=== PATIENT | male | born 1980 | race Caucasian/White ===

== ENCOUNTER 2017-10-11 05:22 | Emergency (ER) | payer OTHER ==
[2017-10-11 05:42] VITALS: TEMP 97.9; BMI 42.5
[2017-10-11] MEDS ORDERED: morphine CARPU-JECT 4 MG/1 ML DISP.SYRIN IVPUSH ONE (05:47)
--- NOTE | 2017-10-11 06:02 | PDOC ---
History of Present Illness - General Chief Complaint: Pain Stated Complaint: ABDOMINAL PAIN Time Seen by Provider: 10/11/17 05:36 - History of Present Illness Initial Comments: 10/11/17 05:57 The patient is a 37 year old male with no significant past medical history brought in by EMS for periumbilical pain that woke him from sleep early this morning. The patient describes his pain as a "stretching" sensation that is nonradiating and nonmigrating. Pain is not noted to be associated with eating. He does complain of some loose stool last night. No vomiting or constipation. No groin or testicular pain. No fever or chills. No chest pain or shortness of breath. Pt notes that he was exercising last night (doing crunches) but did not feel any pain at that time. Pt denies prior surgeries. No h/o hernias. Has not noticed any new bulges in his abdomen. Past History - Past Medical History Allergies/Adverse Reactions: Allergies Allergy/AdvReac Type Severity Reaction Status Date / Time No Known Allergies Allergy Verified 10/11/17 05:41 Home Medications: Ambulatory Orders NK [No Known Home Medication] 10/11/17 - Suicide/Smoking/Psychosocial Hx Smoking History: Never smoked Have you smoked in the past 12 months: No Information on smoking cessation initiated: No Hx Alcohol Use: No Drug/Substance Use Hx: No Review of Systems - Review of Systems Comments:: 10/11/17 06:00 "GENERAL/CONSTITUTIONAL: No fever or chills. No weakness. HEAD, EYES, EARS, NOSE AND THROAT: No change in vision. No ear pain or discharge. No sore throat. CARDIOVASCULAR: No chest pain or shortness of breath. RESPIRATORY: No cough, wheezing, or hemoptysis. GASTROINTESTINAL: +Abdominal pain. +Loose stool (resolved). No vomiting, or constipation. GENITOURINARY: No dysuria, frequency, or change in urination. No groin or testicular pain. MUSCULOSKELETAL: No joint or muscle swelling or pain. No neck or back pain. SKIN: No rash NEUROLOGIC: No headache, vertigo, loss of consciousness, or change in strength/ sensation. ENDOCRINE: No increased thirst. No abnormal weight change. HEMATOLOGIC/LYMPHATIC: No anemia, easy bleeding, or history of blood clots. ALLERGIC/IMMUNOLOGIC: No hives or skin allergy. " *Physical Exam - Vital Signs Last Vital Signs Temp Pulse Resp BP Pulse Ox 97.9 F 79 14 153/100 100 10/11/17 05:41 10/11/17 05:41 10/11/17 05:41 10/11/17 05:41 10/11/17 05:41 - Physical Exam Comments: 10/11/17 06:00 "GENERAL: Awake, alert, and fully oriented. Uncomfortable appearing. HEAD: No signs of trauma EYES: PERRLA, EOMI, sclera anicteric, conjunctiva clear ENT: Auricles normal inspection, hearing grossly normal, nares patent, oropharynx clear without exudates. Moist mucosa NECK: Nontender, no stepoffs, Normal ROM, supple, no lymphadenopathy, JVD, or masses LUNGS: Breath sounds equal, clear to auscultation bilaterally. No wheezes, and no crackles HEART: Regular rate and rhythm, normal S1 and S2, no murmurs, rubs or gallops ABDOMEN: Soft, mild periumbilical tenderness, normoactive bowel sounds. No guarding, no rebound. No palpable masses EXTREMITIES: Normal range of motion, no edema. No clubbing or cyanosis. No cords, erythema, or tenderness NEUROLOGICAL: Cranial nerves II through XII intact. 5/5 strength and sensation in all extremities, Normal speech, normal gait, normal cerebellar function SKIN: Warm, Dry, normal turgor, no rashes or lesions noted." ED Treatment Course - LABORATORY CBC & Chemistry Diagram: 10/11/17 06:00 10/11/17 06:00 - RADIOLOGY Radiology Studies Ordered: Category Date Time Status ABDOMEN & PELVIS CT WITH CONTR [CT] Stat CT Scan 10/11/17 05:43 Ordered Medical Decision Making - Medical Decision Making 10/11/17 06:00 37 M with sudden onset periumbilical pain. Possible incarcerated hernia, though no palpable masses on exam. Dissection is unlikely as pt with no risk factors and equal pulses distally. Pt with no RLQ tenderness to suggest appy. - Labs, UA - CTAP - Pain control 10/11/17 06:25 Pt reports that he just passed a large amount of flatus, resulting in almost complete resolution of his pain. He states that the pain has gone from 10/10 to 2/10 in severity. Repeat abdominal exam nontender. CT deferred at this time. Will still obtain labwork, urine, and abd XR. Reassess pt once labwork and XR return. *DC/Admit/Observation/Transfer Diagnosis at time of Disposition: Abdominal pain Qualifiers: Abdominal location: lower abdomen, unspecified Qualified Code(s): R10.30 - Lower abdominal pain, unspecified - Discharge Dispostion Disposition: HOME Condition at time of disposition: Improved - Referrals Referrals: Brandon Yang MD [Staff Physician] - - Patient Instructions Printed Discharge Instructions: DI for Abdominal Pain-Adult Additional Instructions: Return to the emergency department immediately with ANY new, persistent or worsening symptoms including worsening abdominal pain, fevers, inability to tolerate oral intake, chest pain, shortness of breath or any other concerns. Stay well hydrated. You MUST call and follow up with your doctor tomorrow. Your emergency department visit is not complete without a followup with your doctor for reevaluation. Please make sure your doctor reviews the results of your emergency evaluation. Print Language: NEPALI - Post Discharge Activity - Attestations Physician Attestion: 10/13/17 16:20 I, Dr. Klaus Henriquez MD, attest that this document has been prepared under my direction and personally reviewed by me in its entirety. I further attest, that it accurately reflects all work, treatment, procedures and medical decision -making performed by me.
[2017-10-11] MEDS ORDERED: FAMOTIDINE 20 MG/50 ML IVPB 20 MG/50 ML MG IVPB ONE ×2 (06:24→07:52)
[2017-10-11] MEDS ORDERED: SODIUM CHLORIDE 1,000 ML IV STA (06:24)
[2017-10-11] MEDS ORDERED: MAG HYDROX/AL HYDROX/SIMETH 30 ML UNIT-DOSE CUP PO ONE (06:24)
[2017-10-11] MEDS ORDERED: MAG HYDROX/AL HYDROX/SIMETH 30 ML UNIT-DOSE CUP ONE (07:03)
--- NOTE | 2017-10-11 07:21 | PDOC ---
*Physical Exam - Vital Signs Last Vital Signs Temp Pulse Resp BP Pulse Ox 97.9 F 79 14 153/100 100 10/11/17 05:41 10/11/17 05:41 10/11/17 05:41 10/11/17 05:41 10/11/17 05:41 ED Treatment Course - LABORATORY CBC & Chemistry Diagram: 10/11/17 06:00 10/11/17 06:00 - Medications Given in the ED: ED Medications Discontinued Medications Generic Name Dose Route Start Last Admin Trade Name Hannah PRN Reason Stop Dose Admin Al Hydroxide/Mg Hydroxide 30 ml 10/11/17 06:24 10/11/17 07:09 Mylanta Oral Suspension - PO 10/11/17 06:25 30 ml ONCE ONE Administration Medical Decision Making - Medical Decision Making 10/11/17 07:17 Pt signed out to me from Dr. Henriquez around 7am - pt is a 37y M no notable pmh xpresents with sudden onset periumbilical pain that resolved with a large amount of flatus - awaiting lab work and abd xray and reassessment, if pt still in pain plan is to obtained a CT abdomen. 10/11/17 11:08 pt feeling improved abd reassed multiple times and is negative/soft nontender delay in discharge due to lab problems pts labs just resulted and are normal will dc the pt with pmd fu return precautions were discussed I discussed the physical exam findings, ancillary test results and final diagnoses with the patient. I answered all of the patient's questions. The patient was satisfied with the care received and felt comfortable with the discharge plan and treatment plan. The patient will call their primary care physician within 24 hours to arrange follow-up and will return to the Emergency Department with any new, persistent or worsening symptoms. 10/11/17 11:22 pt admits to having milk with granola as last meal and is lactose intolerant. pts sbgm is 200, will have him fu this with PMD *DC/Admit/Observation/Transfer Diagnosis at time of Disposition: Abdominal pain Qualifiers: Abdominal location: lower abdomen, unspecified Qualified Code(s): R10.30 - Lower abdominal pain, unspecified - Discharge Dispostion Disposition: HOME Condition at time of disposition: Improved Admit: No - Referrals Referrals: Brandon Yang MD [Staff Physician] - - Patient Instructions Printed Discharge Instructions: DI for Abdominal Pain-Adult Additional Instructions: Return to the emergency department immediately with ANY new, persistent or worsening symptoms including worsening abdominal pain, fevers, inability to tolerate oral intake, chest pain, shortness of breath or any other concerns. Stay well hydrated. You MUST call and follow up with your doctor tomorrow. Your emergency department visit is not complete without a followup with your doctor for reevaluation. Please make sure your doctor reviews the results of your emergency evaluation. Print Language: IRISH - Post Discharge Activity
[2017-10-11 07:32] LABS: BASO % 0.4 % (0-2.0); HEMATOCRIT 43.1 % (35.4-49); LYMPH % 22.9 % (8-40); MCHC 32.6 g/dl (32.0-35.9); MEAN CELL VOLUME 76.7 fl (80-96); MONO % 8.1 % (3.8-10.2); NEUT % 65.6 % (42.8-82.8); PLATELET COUNT 231 K/MM3 (134-434); RBC 5.61 M/mm3 (4.00-5.60); RDW 14.7 % (11.9-15.9); WHITE BLOOD COUNT 8.3 K/mm3 (4.0-10.0)
[2017-10-11 07:49] LABS: INR 1.06 (0.82-1.09)
[2017-10-11 07:52] LABS: ACTIVATED PTT 35.5 SECONDS (26.9-34.4)
[2017-10-11 08:24] LABS: URINE APPEARANCE CLEAR; URINE BILIRUBIN NEGATIVE (<2.0 mg/dL); URINE BLOOD 2+ (NEGATIVE); URINE COLOR STRAW; URINE GLUCOSE (UA) NEGATIVE (NEGATIVE); URINE KETONE NEGATIVE (NEGATIVE); URINE LEUK ESTERASE NEGATIVE (NEGATIVE); URINE NITRITE NEGATIVE (NEGATIVE); URINE PROTEIN NEGATIVE (NEGATIVE); URINE UROBILINOGEN NEGATIVE mg/dL (0.2-1.0)
[2017-10-11 08:53] LABS: EPI CELLS RARE /HPF (FEW); URINE MUCUS RARE
[2017-10-11 11:34] VITALS: BP 149/98; PULSE 85
--- NOTE | 2017-10-11 21:26 | EKG ---
Test Reason : Blood Pressure : / mmHG Vent. Rate : 070 BPM Atrial Rate : 070 BPM P-R Int : 196 ms QRS Dur : 100 ms QT Int : 394 ms P-R-T Axes : 050 035 012 degrees QTc Int : 425 ms NORMAL SINUS RHYTHM NORMAL ECG NO PREVIOUS ECGS AVAILABLE Confirmed by AURELIO GARRIDO MD ([id number]) on 10/11/2017 9:26:41 PM Referred By: Confirmed By:AURELIO GARRIDO MD
[2017-10-12 00:43] LABS: ANION GAP 12 (8-16); BLOOD UREA NITROGEN 12 mg/dL (7-18); CALCIUM 10.2 mg/dL (8.5-10.1); CHLORIDE 105 mmol/L (98-107); CO2 27 mmol/L (21-32); CREATININE 0.9 mg/dL (0.7-1.3); GLUCOSE,RANDOM 96 mg/dL (74-106); SODIUM 144 mmol/L (136-145)
[2017-10-12 00:44] LABS: ALBUMIN 4.6 g/dl (3.4-5.0); BILIRUBIN,TOTAL 0.6 mg/dL (0.2-1.0); LIPASE 100 U/L (73-393); SGOT/AST 38 U/L (15-37); SGPT/ALT 59 U/L (12-78); TOT PROT 7.7 g/dl (6.4-8.2)
[2017-10-12 00:45] LABS: ALK PHOS 377 U/L (45-117)
== END 2017-10-11 11:34 | disposition home or self-care (01) ==
LOC: JER 05:22
PROC: 3E0337Z Introduction of Electrolytic and Water Balance Substance into Peripheral Vein, Percutaneous Approach (ICD-10-PCS; principal; 2017-10-11)
PROC: 3E033GC Introduction of Other Therapeutic Substance into Peripheral Vein, Percutaneous Approach (ICD-10-PCS; 2017-10-11)
DX: R10.33 Periumbilical pain (principal); E73.9 Lactose intolerance, unspecified
CPT/HCPCS: 36415; 74021-TC-FY; 80053; 81003; 81015; 82550; 83605; 83690; 84484; 85025; 85610; 85730; 86850; 86900; 86901; 93005; 93010; 99283-25; J7030